=== PATIENT | female | born 1960 | race Caucasian/White ===

== ENCOUNTER 2022-03-28 11:30 | Inpatient (IN) ==
[2022-03-28] MEDS ORDERED: Heparin - STEMI 5,000 UNITS/ML 1 ml VIAL IV ONE (11:41)
[2022-03-28 11:51] LABS: ABS Eosinophils 0.1 10^3/ul (0-0.6); ABS Lymphocytes 1.1 10^3/ul (1.0-4.8); ABS Monocytes 0.5 10^3/ul (0-0.8); ABS Neutrophils 5.1 10^3/ul (1.5-7.7); Eosinophil % 1.4 %; Hematocrit 37 % (35-47); Lymphocyte % 16.5 %; Mean Corpuscular HGB Conc 33 g/dL (31-36); Mean Corpuscular Hemoglobin 29 pg (27-31); Mean Corpuscular Volume 90 fL (80-97); Mean Platelet Volume 6.7 fL (7.4-10.4); Nucleated Red Blood Cells % 0.1; Platelet Count 308 10^3/uL (150-450); Red Blood Count 4.13 10^6 /uL (3.70-4.87); Red Cell Distribution Width 15 % (10-15); White Blood Count 6.9 10^3/uL (3.5-10.8)
[2022-03-28] MEDS ORDERED: Iodixanol (CONTRAST) 320 MG/ML 100 ML SDV IV ONE (11:58)
[2022-03-28 12:00] LABS: Activated Partial Thrombo Time 28.7 seconds (26.0-38.0); INR 0.94 (0.89-1.11)
[2022-03-28] MEDS ORDERED: fentaNYL 100 mcg/2 ml 50 MCG/ML VIAL IV SLOW PU ONE ×3 (12:16→13:37)
[2022-03-28 12:33] LABS: Albumin/Globulin Ratio 1.7 (1-3); Calcium 9.3 mg/dL (8.6-10.3); Globulin 2.4 g/dL (2-4); Magnesium 1.9 mg/dL (1.9-2.7); Potassium 3.8 mmol/L (3.5-5.0); Total Bilirubin 0.3 mg/dL (0.2-1.0); Total Protein 6.4 g/dL (6.4-8.9); eGFR CKD-EPI 66.9 (>60)
[2022-03-28] MEDS ORDERED: Heparin DRIP 25,000 UNITS BAG 25,000 UNITS/500 ML BAG IV SCH (13:00)
[2022-03-28] MEDS ORDERED: Heparin 5000 UNITS/ML 1 mL VIAL IV SCH (13:00)
[2022-03-28 13:11] LABS: High Sensitivity Troponin 1 Hr 2100 pg/mL (<15)
[2022-03-28] MEDS ORDERED: Heparin 2 UNITS/ML 1000 mls 2,000 ML IV ONE (14:12)
[2022-03-28] MEDS ORDERED: nitroGLYCERIN DRIP 25,000 MCG/250 ML BTL ONE (14:12)
[2022-03-28] MEDS ORDERED: Heparin 1,000 UNIT/ML 10 ml (10,000 UNITS) CATHLAB/DIALYSIS ONE (14:12)
[2022-03-28] MEDS ORDERED: Midazolam 5 mg/5 ml VIAL 1 mg/ml 5 ml VIAL (5 mg) ONE (14:12)
[2022-03-28] MEDS ORDERED: VERAPAMIL 2.5 MG/ML 2 ML VIAL ** 5 mg/2 ml ONE (14:12)
[2022-03-28] MEDS ORDERED: fentaNYL 100 mcg/2 ml 50 MCG/ML VIAL ONE (14:12)
[2022-03-28] MEDS ORDERED: Lidocaine 1% MPF 5 ML VIAL ONE (14:13)
[2022-03-28] MEDS ORDERED: Iohexol 350 (CONTRAST) 100 ML PAK IV ONE ×2 (14:13→15:10)
[2022-03-28] MEDS ORDERED: NS 0.9% 1000 ml BAG 1,000 ML IV SCH (15:45)
[2022-03-28] MEDS: Lidocaine PATCH 5% PATCH TRANSDERM SCH (17:53)
[2022-03-28] MEDS ORDERED: PAIN RELIEVING RUB (MENTHOL/SALICYLATE) 1 APPLIC TUBE TOPICAL PRN ×2 (23:03→23:24)
[2022-03-29] MEDS ORDERED: Lidocaine PATCH 5% PATCH TRANSDERM ONE (02:18)
[2022-03-29 05:02] LABS: Albumin 3.9 g/dL (3.2-5.2); Potassium 3.7 mmol/L (3.5-5.0); Total Bilirubin 0.4 mg/dL (0.2-1.0)
[2022-03-29 05:08] LABS: Albumin/Globulin Ratio 1.6 (1-3); Globulin 2.5 g/dL (2-4); HDL Cholesterol 59.2 mg/dL; Total Protein 6.4 g/dL (6.4-8.9); eGFR CKD-EPI 73.3 (>60)
[2022-03-29] MEDS ORDERED: Potassium Chlor 20 meq TAB.ER PO ONE (08:48)
[2022-03-29] MEDS: Lidocaine PATCH 5% PATCH TRANSDERM SCH (10:37)
[2022-03-29 13:51] LABS: High Sensitivity Troponin 1 Hr > 24000 pg/mL (<15)
[2022-03-29 16:21] VITALS: BP 121/70
== END 2022-03-29 08:00 | disposition left against medical advice (07) | DRG 287 ==
LOC: ED 11:30 → CHICATH 14:07 → ICU 16:48